=== PATIENT | male | born 1990 | race Two or more races ===

== ENCOUNTER 2024-07-08 19:31 | Emergency (ER) | payer SELFPAY ==
[~2024-07-08] VITALS: Ht 172.7 cm; Wt 70.9 kg
[2024-07-08 19:58] VITALS: BP 105/64; PULSE 57; RESP 16; TEMP 98.2; O2SAT 100
[2024-07-09] MEDS: ACETAMINOPHEN 325 MG TABLET PO ONE (01:37)
[2024-07-09 02:11] LABS: COVID AG,FIA SOURCE NASAL SWAB
[2024-07-09] MEDS: KETOROLAC TROMETHAMINE 30 MG/ML VIAL IM ONE (02:21)
[2024-07-09 02:27] LABS: BASOPHILS % (AUTO) 1.1 % (0.0-2.0); EOSINOPHILS % (AUTO) 5.3 % (1.0-6.0); HEMOGLOBIN 15.3 g/dL (13.5-17.5); LYMPHOCYTES # (AUTO) 1.2 K/uL (1.0-4.8); MEAN CORPUSCULAR HEMOGLOBIN 32.2 pg (26.0-34.0); MEAN CORPUSCULAR HGB CONC 35.7 G/dL (31.0-37.0); MEAN CORPUSCULAR VOLUME 90 fL (80-100); MONOCYTES # (AUTO) 0.3 K/uL (0.1-1.0); MONOCYTES % (AUTO) 6.6 % (2.0-9.0); NEUTROPHILS # (AUTO) 3.4 K/uL (1.8-7.7); PLATELET COUNT (AUTO) 222 K/uL (150-450); RED BLOOD CELL COUNT(AUTO) 4.77 MIL/uL (4.50-5.90); RED CELL DISTRIBUTION WIDTH 13.2 % (11.5-14.5); WHITE BLOOD COUNT (AUTO) 5.3 K/uL (4.5-11.0)
[2024-07-09 02:34] LABS: INFLUENZA TYPE A NEGATIVE FOR TYPE A (NEGATIVE); INFLUENZA TYPE B NEGATIVE FOR TYPE B (NEGATIVE)
[2024-07-09 02:40] LABS: ANION GAP 9 mmol/L (8-16); CALCIUM, TOTAL 8.8 mg/dL (8.8-10.5); CARBON DIOXIDE 30 mmol/L (22-29); CHLORIDE 94 mmol/L (98-107); CREATININE 1.07 mg/dL (0.60-1.30); GLOMERULAR FILTR. RATE CALC > 60 mL/min (>60); GLUCOSE,RANDOM 118 mg/dL (70-110); SODIUM SERUM 133 mmol/L (136-145); UREA NITROGEN, BLOOD 12 mg/dL (7-18)
[2024-07-09 02:43] LABS: SARS-COV2 (COVID) ANTIGEN,FIA Negative (Negative)
[2024-07-09 02:53] LABS: POTASSIUM 2.9 mmol/L (3.5-5.1)
[2024-07-09] MEDS: POTASSIUM CHLORIDE 20 MEQ ER TABLET PO ONE (03:48)
== END 2024-07-09 04:30 | disposition home or self-care (01) ==
LOC: EMS 19:31
DX: R51.9 Headache, unspecified (principal); E87.6 Hypokalemia; Z20.822 Contact with and (suspected) exposure to COVID-19
CPT/HCPCS: 99284; 87426; 80048; 85025; 87804; 36415; 71045; J1885

== ENCOUNTER 2024-08-04 03:46 | Emergency (ER) | payer MEDICAID ==
[~2024-08-04] VITALS: Ht 175.3 cm; Wt 68.2 kg
[2024-08-04 03:55] VITALS: BP 130/90; PULSE 75; RESP 18; TEMP 97.8; O2SAT 100
[2024-08-04] MEDS: NALTREXONE HCL 50 MG TABLET PO ONE (05:35)
[2024-08-04] MEDS: DIVALPROEX SODIUM 500 MG ER TABLET PO ONE (05:35)
[2024-08-04] MEDS: LevETIRAcetam 500 MG TABLET PO ONE (05:35)
[2024-08-04] MEDS: FLUoxetine HCL 20 MG CAPSULE PO ONE (05:36)
[2024-08-04] MEDS: OLANZapine 5 MG TABLET PO ONE (05:36)
[2024-08-04] MEDS ORDERED: OLAN15TA21 PO (05:58)
[2024-08-04] MEDS ORDERED: DIVA-153 PO (05:58)
[2024-08-04] MEDS ORDERED: NALT50TA33 PO (05:58)
[2024-08-04] MEDS ORDERED: LEVE500T8 PO (05:58)
[2024-08-04] MEDS ORDERED: FLUO-418 PO (05:58)
== END 2024-08-04 08:13 | disposition home or self-care (01) ==
LOC: EMS 03:47
DX: F41.0 Panic disorder [episodic paroxysmal anxiety] (principal); F15.10 Other stimulant abuse, uncomplicated; Z59.00 Homelessness unspecified; Z79.899 Other long term (current) drug therapy
CPT/HCPCS: 99284; Z7502; Z7610

== ENCOUNTER → 2024-08-06 | Emergency (ER) | payer MEDICAID ==
[~2024-08-06] VITALS: Ht 170.2 cm; Wt 70.0 kg
[~2024-08-06] MED LIST: DIVA-153 PO; FLUO-418 PO; LEVE500T8 PO; NALT50TA33 PO; OLAN15TA21 PO
[2024-08-06 02:44] VITALS: BP 130/76; PULSE 88; RESP 16; TEMP 98; O2SAT 100
== END | disposition left against medical advice (07) ==
LOC: EMS 02:42
DX: F41.9 Anxiety disorder, unspecified (principal); Z53.21 Procedure and treatment not carried out due to patient leaving prior to being seen by health care provider

== ENCOUNTER 2024-08-11 23:51 | Emergency (ER) | payer MEDICAID ==
[~2024-08-11] VITALS: Ht 172.7 cm; Wt 61.4 kg
[2024-08-11 23:59] VITALS: TEMP 98
[2024-08-12] MEDS: LORazepam 2 MG TABLET PO ONE (00:37)
[2024-08-12 01:35] VITALS: BP 121/74; PULSE 70; RESP 16; O2SAT 100
== END 2024-08-12 02:23 | disposition home or self-care (01) ==
LOC: EMS 23:51
DX: F41.0 Panic disorder [episodic paroxysmal anxiety] (principal); R06.02 Shortness of breath; F12.90 Cannabis use, unspecified, uncomplicated; Z79.899 Other long term (current) drug therapy
CPT/HCPCS: 99283

== ENCOUNTER 2024-08-13 19:05 | Emergency (ER) | payer MEDICAID ==
[~2024-08-13] VITALS: Ht 175.3 cm; Wt 75.0 kg
[2024-08-13] MEDS: ACETAMINOPHEN 325 MG TABLET PO ONE (20:05)
[2024-08-13] MEDS: IBUPROFEN 400 MG TABLET PO ONE (20:05)
[2024-08-13 21:30] VITALS: BP 135/79; PULSE 74; RESP 16; TEMP 97.9; O2SAT 98
== END 2024-08-13 22:35 | disposition home or self-care (01) ==
LOC: EMS 19:06
DX: S40.022A Contusion of left upper arm, initial encounter (principal); F41.9 Anxiety disorder, unspecified; F12.90 Cannabis use, unspecified, uncomplicated; G40.909 Epilepsy, unspecified, not intractable, without status epilepticus; F15.90 Other stimulant use, unspecified, uncomplicated; Z79.899 Other long term (current) drug therapy; Y08.89XA Assault by other specified means, initial encounter; Y93.89 Activity, other specified; Y92.89 Other specified places as the place of occurrence of the external cause; Y99.8 Other external cause status
CPT/HCPCS: 99284

== ENCOUNTER 2024-08-16 03:55 | Emergency (ER) | payer MEDICAID ==
[~2024-08-16] VITALS: Ht 175.3 cm; Wt 68.2 kg
[2024-08-16 03:59] VITALS: BP 131/93; PULSE 66; RESP 20; TEMP 98.2; O2SAT 98
[2024-08-16] MEDS ORDERED: ACETAMINOPHEN 500 MG TABLET PO ONE (04:30)
[2024-08-16] MEDS ORDERED: IBUPROFEN 600 MG TABLET PO ONE (04:30)
[2024-08-16] MEDS ORDERED: ACET-3385 PO (04:33)
[2024-08-16] MEDS ORDERED: IBUP-1492 PO (04:33)
== END 2024-08-16 04:46 | disposition home or self-care (01) ==
LOC: EMS 03:56
DX: S50.12XA Contusion of left forearm, initial encounter (principal); F12.90 Cannabis use, unspecified, uncomplicated; F41.9 Anxiety disorder, unspecified; Z79.899 Other long term (current) drug therapy; X58.XXXA Exposure to other specified factors, initial encounter; Y93.89 Activity, other specified; Y92.89 Other specified places as the place of occurrence of the external cause; Y99.8 Other external cause status
CPT/HCPCS: 99283; Z7502

== ENCOUNTER 2024-08-20 22:38 | Emergency (ER) | payer MEDICAID ==
[~2024-08-20] VITALS: Ht 175.3 cm; Wt 68.2 kg
[~2024-08-20 22:38] MED LIST changes: +ACET-3385 PO; +IBUP-1492 PO
[2024-08-21 02:00] VITALS: BP 123/77; PULSE 78; RESP 18; TEMP 98.3; O2SAT 98
[2024-08-21 02:22] LABS: BASOPHILS % (AUTO) 0.7 % (0.0-2.0); EOSINOPHILS % (AUTO) 2.5 % (1.0-6.0); HEMATOCRIT 38.8 % (41-53); HEMOGLOBIN 13.1 g/dL (13.5-17.5); LYMPHOCYTES # (AUTO) 1.3 K/uL (1.0-4.8); LYMPHOCYTES % (AUTO) 17.9 % (22.0-44.0); MEAN CORPUSCULAR HEMOGLOBIN 31.8 pg (26.0-34.0); MEAN CORPUSCULAR HGB CONC 33.7 G/dL (31.0-37.0); MEAN CORPUSCULAR VOLUME 95 fL (80-100); MONOCYTES # (AUTO) 0.4 K/uL (0.1-1.0); NEUTROPHILS # (AUTO) 5.4 K/uL (1.8-7.7); NEUTROPHILS % (AUTO) 73.9 % (40.0-70.0); PLATELET COUNT (AUTO) 238 K/uL (150-450); RED CELL DISTRIBUTION WIDTH 13.5 % (11.5-14.5); WHITE BLOOD COUNT (AUTO) 7.3 K/uL (4.5-11.0)
[2024-08-21 02:34] LABS: COVID AG,FIA SOURCE NASAL SWAB
[2024-08-21 02:36] LABS: ANION GAP 8 mmol/L (8-16); CALCIUM, TOTAL 8.8 mg/dL (8.8-10.5); CARBON DIOXIDE 29 mmol/L (22-29); CHLORIDE 102 mmol/L (98-107); CREATININE 0.71 mg/dL (0.60-1.30); GLOMERULAR FILTR. RATE CALC > 60 mL/min (>60); GLUCOSE,RANDOM 88 mg/dL (70-110); POTASSIUM 4.6 mmol/L (3.5-5.1); SODIUM SERUM 139 mmol/L (136-145); UREA NITROGEN, BLOOD 17 mg/dL (7-18)
[2024-08-21 02:47] LABS: APPEARANCE,URINE CLEAR (CLEAR); BILIRUBIN,URINE NEGATIVE (NEGATIVE); COLOR,URINE COLORLESS (YELLOW); GLUCOSE, URINE (UA) NEGATIVE (NEGATIVE); KETONES,URINE NEGATIVE (NEGATIVE); LEUKOCYTE ESTERASE ,URINE NEGATIVE (NEGATIVE); NITRATE,URINE NEGATIVE (NEGATIVE); OCCULT BLOOD,URINE NEGATIVE (NEGATIVE); PROTEIN,URINE NEGATIVE (NEGATIVE); SPECIFIC GRAVITIY, URINE 1.017 (1.003-1.030); UROBILINOGEN,URINE <=1.0 mg/dL (<=1.0)
[2024-08-21 02:48] LABS: ALCOHOL, BLOOD (SERUM) < 3 mg/dL (0-10)
[2024-08-21 02:50] LABS: ALCOHOL, URINE DRUG SCREEN NEGATIVE (NEGATIVE); AMPHET/METH SCREEN,URINE POSITIVE (NEGATIVE); BARBITURATE SCREEN, URINE NEGATIVE (NEGATIVE); BENZODIAZEPINES SCREEN,URINE NEGATIVE (NEGATIVE); CANNABINOID SCREEN,URINE POSITIVE (NEGATIVE); COCAINE SCREEN,URINE NEGATIVE (NEGATIVE); METHADONE SCREEN, URINE NEGATIVE (NEGATIVE); OPIATE SCREEN,URINE NEGATIVE (NEGATIVE); PHENCYCLIDINE SCREEN,URINE NEGATIVE (NEGATIVE)
[2024-08-21 03:00] LABS: SARS-COV2 (COVID) ANTIGEN,FIA Negative (Negative)
== END 2024-08-21 03:42 | disposition home or self-care (01) ==
LOC: EMS 22:47
DX: F41.9 Anxiety disorder, unspecified (principal); F15.10 Other stimulant abuse, uncomplicated; F12.90 Cannabis use, unspecified, uncomplicated; Z79.899 Other long term (current) drug therapy; Z20.822 Contact with and (suspected) exposure to COVID-19
CPT/HCPCS: 99283; 87426; 80048; 81003; 85025; 36415; 80307; G0480

== ENCOUNTER 2024-11-22 02:13 | Emergency (ER) | payer MEDICAID, OTHER ==
[~2024-11-22] VITALS: Ht 175.3 cm; Wt 68.2 kg
[~2024-11-22 02:13] MED LIST changes: +OLAN7.5T22 PO
[2024-11-22 04:08] VITALS: BP 113/71; PULSE 64; RESP 16; TEMP 97.9; O2SAT 98
[2024-11-22] MEDS: OLANZapine 10 MG TABLET PO ONE (05:30)
[2024-11-22] MEDS: LORazepam 1 MG TABLET PO ONE (05:30)
[2024-11-22 07:03] LABS: COVID AG,FIA SOURCE NASAL SWAB
[2024-11-22 07:39] LABS: SARS-COV2 (COVID) ANTIGEN,FIA Negative (Negative)
[2024-11-22 09:27] LABS: APPEARANCE,URINE CLEAR (CLEAR); BILIRUBIN,URINE NEGATIVE (NEGATIVE); COLOR,URINE LIGHT YELLOW (YELLOW); GLUCOSE, URINE (UA) NEGATIVE (NEGATIVE); KETONES,URINE NEGATIVE (NEGATIVE); LEUKOCYTE ESTERASE ,URINE NEGATIVE (NEGATIVE); NITRATE,URINE NEGATIVE (NEGATIVE); OCCULT BLOOD,URINE NEGATIVE (NEGATIVE); PH,URINE 5.5 (5.0-8.0); PH,URINE DRUG SCREEN 5.5 (5.0-8.0); PROTEIN,URINE NEGATIVE (NEGATIVE); SPECIFIC GRAVITIY, URINE 1.022 (1.003-1.030); UROBILINOGEN,URINE <=1.0 mg/dL (<=1.0)
[2024-11-22 09:33] LABS: AMPHET/METH SCREEN,URINE NEGATIVE (NEGATIVE); BARBITURATE SCREEN, URINE NEGATIVE (NEGATIVE); BENZODIAZEPINES SCREEN,URINE NEGATIVE (NEGATIVE); CANNABINOID SCREEN,URINE POSITIVE (NEGATIVE); COCAINE SCREEN,URINE NEGATIVE (NEGATIVE); METHADONE SCREEN, URINE NEGATIVE (NEGATIVE); OPIATE SCREEN,URINE NEGATIVE (NEGATIVE); PHENCYCLIDINE SCREEN,URINE NEGATIVE (NEGATIVE)
[2024-11-22 09:38] LABS: ALCOHOL, URINE DRUG SCREEN NEGATIVE (NEGATIVE)
[2024-12-02] MEDS ORDERED: DIVA-153 PO (07:49)
[2024-12-02] MEDS ORDERED: LEVE-71 PO (07:49)
[2024-12-02] MEDS ORDERED: OLAN7.5T22 PO (07:49)
[2024-12-02] MEDS ORDERED: FLUO-418 PO (07:49)
== END 2024-11-22 10:46 | disposition home or self-care (01) ==
LOC: EMS 02:14 → MERGE 02:14 → EMS 10:46
DX: F25.9 Schizoaffective disorder, unspecified (principal); F41.9 Anxiety disorder, unspecified; F31.9 Bipolar disorder, unspecified; Z79.899 Other long term (current) drug therapy; Z20.822 Contact with and (suspected) exposure to COVID-19
CPT/HCPCS: 80307; 81003; 99283; 99284

== ENCOUNTER 2024-11-23 04:50 | Emergency (ER) | payer MEDICAID, OTHER ==
[~2024-11-23 04:50] MED LIST changes: -OLAN7.5T22 PO
== END 2024-11-23 05:22 | disposition left against medical advice (07) ==
LOC: EMS 04:51
DX: F41.9 Anxiety disorder, unspecified (principal); Z53.21 Procedure and treatment not carried out due to patient leaving prior to being seen by health care provider

== ENCOUNTER 2024-12-02 15:57 | Emergency (ER) | payer MEDICAID, OTHER ==
[~2024-12-02] VITALS: Ht 175.3 cm; Wt 68.2 kg
[~2024-12-02 15:57] MED LIST changes: +LEVE-71 PO; +OLAN7.5T22 PO
[2024-12-02 16:23] VITALS: TEMP 97.9
[2024-12-02] MEDS ORDERED: NALT50TA33 PO (16:27)
[2024-12-02] MEDS: OLANZapine 10 MG TABLET PO ONE (18:02)
[2024-12-02] MEDS: LORazepam 1 MG TABLET PO ONE (18:02)
[2024-12-02 18:15] VITALS: BP 126/90; PULSE 82; RESP 18; O2SAT 99
== END 2024-12-02 18:45 | disposition home or self-care (01) ==
LOC: EMS 15:58
DX: F25.1 Schizoaffective disorder, depressive type (principal); F41.9 Anxiety disorder, unspecified; F15.10 Other stimulant abuse, uncomplicated; R07.89 Other chest pain; F12.90 Cannabis use, unspecified, uncomplicated; Z98.890 Other specified postprocedural states; Z79.899 Other long term (current) drug therapy
CPT/HCPCS: 99283; 99284

== ENCOUNTER 2024-12-18 12:14 | Emergency (ER) | payer OTHER ==
[~2024-12-18] VITALS: Ht 175.3 cm; Wt 68.2 kg
[~2024-12-18 12:14] MED LIST changes: -ACET-3385 PO; -IBUP-1492 PO; -LEVE500T8 PO; -OLAN15TA21 PO
[2024-12-18 12:45] VITALS: BP 134/99; PULSE 88; RESP 18; TEMP 97.9; O2SAT 98
[2024-12-18 13:08] LABS: COVID AG,FIA SOURCE NASAL SWAB
[2024-12-18 13:25] LABS: SARS-COV2 (COVID) ANTIGEN,FIA Negative (Negative)
[2024-12-18] MEDS: OLANZapine 5 MG TABLET PO ONE (14:40)
== END 2024-12-18 16:37 | disposition home or self-care (01) ==
LOC: EMS 12:30
DX: F15.10 Other stimulant abuse, uncomplicated (principal); F41.9 Anxiety disorder, unspecified; F84.0 Autistic disorder; R45.851 Suicidal ideations; F12.90 Cannabis use, unspecified, uncomplicated; Z98.890 Other specified postprocedural states; Z79.899 Other long term (current) drug therapy; Z20.822 Contact with and (suspected) exposure to COVID-19
CPT/HCPCS: 99283

== ENCOUNTER 2024-12-18 23:46 | Emergency (ER) | payer OTHER ==
[~2024-12-18] VITALS: Ht 175.3 cm; Wt 68.0 kg
[2024-12-18 23:51] VITALS: TEMP 98.5
[2024-12-19 00:11] VITALS: BP 101/76; PULSE 80; RESP 18; O2SAT 97
== END 2024-12-19 01:38 | disposition home or self-care (01) ==
LOC: EMS 23:47
DX: F41.9 Anxiety disorder, unspecified (principal); F15.10 Other stimulant abuse, uncomplicated; Z98.890 Other specified postprocedural states; Z79.899 Other long term (current) drug therapy
CPT/HCPCS: 99283

== ENCOUNTER 2025-01-08 21:23 | Emergency (ER) | payer OTHER ==
[~2025-01-08] VITALS: Ht 172.7 cm; Wt 63.6 kg
[2025-01-08 21:34] VITALS: BP 110/65; PULSE 66; RESP 18; TEMP 98.6; O2SAT 98
== END 2025-01-08 23:04 | disposition left against medical advice (07) ==
LOC: EMS 21:23
DX: F32.A Depression, unspecified (principal); Z53.21 Procedure and treatment not carried out due to patient leaving prior to being seen by health care provider

== ENCOUNTER 2025-02-16 18:19 | Emergency (ER) | payer MEDICAID, OTHER ==
[~2025-02-16] VITALS: Ht 175.3 cm; Wt 65.9 kg
[2025-02-16 19:31] VITALS: TEMP 97.7
[2025-02-16 20:05] LABS: COVID AG,FIA SOURCE NASAL SWAB
[2025-02-16 20:11] LABS: APPEARANCE,URINE CLEAR (CLEAR); GLUCOSE, URINE (UA) NEGATIVE (NEGATIVE); LEUKOCYTE ESTERASE ,URINE NEGATIVE (NEGATIVE); NITRATE,URINE NEGATIVE (NEGATIVE); OCCULT BLOOD,URINE NEGATIVE (NEGATIVE); PH,URINE DRUG SCREEN 6.0 (5.0-8.0); SPECIFIC GRAVITIY, URINE 1.039 (1.003-1.030)
[2025-02-16 20:19] LABS: AMPHET/METH SCREEN,URINE NEGATIVE (NEGATIVE); BARBITURATE SCREEN, URINE NEGATIVE (NEGATIVE); CANNABINOID SCREEN,URINE POSITIVE (NEGATIVE); COCAINE SCREEN,URINE NEGATIVE (NEGATIVE); METHADONE SCREEN, URINE NEGATIVE (NEGATIVE)
[2025-02-16 20:27] LABS: ALCOHOL, URINE DRUG SCREEN NEGATIVE (NEGATIVE)
[2025-02-16 20:33] LABS: SARS-COV2 (COVID) ANTIGEN,FIA Negative (Negative)
[2025-02-16 21:30] VITALS: BP 124/67; PULSE 55; RESP 16; O2SAT 100
== END 2025-02-16 21:50 | disposition home or self-care (01) ==
LOC: EMS 18:19
DX: F20.9 Schizophrenia, unspecified (principal); F15.90 Other stimulant use, unspecified, uncomplicated; F32.A Depression, unspecified; G40.909 Epilepsy, unspecified, not intractable, without status epilepticus; Z79.899 Other long term (current) drug therapy; Z20.822 Contact with and (suspected) exposure to COVID-19
CPT/HCPCS: 80307; 81003; 99284